=== PATIENT | male | born 1965 ===

== ENCOUNTER 2022-06-22 07:50 | Inpatient (IN) ==
[2022-06-22 09:36] LABS: ABS Basophils 0.1 10^3/ul (0-0.2); ABS Eosinophils 0.1 10^3/ul (0-0.6); ABS Lymphocytes 0.8 10^3/ul (1.0-4.8); ABS Monocytes 1.1 10^3/ul (0-0.8); ABS Neutrophils 4.3 10^3/ul (1.5-7.7); Eosinophil % 1.3 %; Hematocrit 42 % (42-52); Hemoglobin 14.7 g/dL (14.0-18.0); Lymphocyte % 12.4 %; Mean Corpuscular HGB Conc 35 g/dL (31-36); Mean Corpuscular Hemoglobin 31 pg (27-31); Mean Corpuscular Volume 88 fL (80-94); Mean Platelet Volume 7.1 fL (7.4-10.4); Platelet Count 237 10^3/uL (150-450); Red Blood Count 4.81 10^6 /uL (4.18-5.48); Red Cell Distribution Width 14 % (10-15); White Blood Count 6.3 10^3/uL (3.5-10.8)
[2022-06-22 10:04] LABS: Albumin 4.3 g/dL (3.2-5.2); Albumin/Globulin Ratio 1.7 (1-3); Calcium 9.1 mg/dL (8.6-10.3); Globulin 2.6 g/dL (2-4); Magnesium 2.1 mg/dL (1.9-2.7); Potassium 4.2 mmol/L (3.5-5.0); Total Bilirubin 1.1 mg/dL (0.2-1.0); Total Protein 6.9 g/dL (6.4-8.9); eGFR CKD-EPI 104.9 (>60)
[2022-06-22] MEDS: Enoxaparin 40 MG/0.4 ML SYR SUBCUT SCH (12:59)
[2022-06-22] MEDS: Dexamethasone IV 4 MG/ML VIAL 1 ml VIAL IV SLOW PU SCH ×2 (12:59→21:25)
[2022-06-22 13:06] LABS: Urine Appearance Clear; Urine Bilirubin Negative (Negative); Urine Blood Negative (Negative); Urine Color Yellow; Urine Glucose Negative (Negative); Urine Ketones Negative (Negative); Urine Nitrite Negative (Negative); Urine Protein Negative (Negative); Urine Specific Gravity 1.012 (1.002-1.030); Urine Urobilinogen Negative (Negative)
[2022-06-22] MEDS ORDERED: Gadoteridol (CONTRAST) 279.3 MG/ML 10 ML IV ONE (14:13)
[2022-06-22 16:52] LABS: TSH Ultra Thyroid Stim Horm 1.54 mcIU/mL (0.34-5.60)
[2022-06-22] MEDS ORDERED: Cyanocobalamin INJ 1,000 MCG/ML VIAL 1 ML VIAL IM ONE (20:00)
[2022-06-23] MEDS: Dexamethasone IV 4 MG/ML VIAL 1 ml VIAL IV SLOW PU SCH ×2 (09:41→21:24)
[2022-06-23] MEDS: Levetiracetam XR 500 MG TAB.XR PO SCH (09:41)
[2022-06-23] MEDS: Enoxaparin 40 MG/0.4 ML SYR SUBCUT SCH (12:39)
[2022-06-23] MEDS ORDERED: Cyanocobalamin INJ 1,000 MCG/ML VIAL 1 ML VIAL IM ONE (14:20)
[2022-06-24] MEDS: Dexamethasone IV 4 MG/ML VIAL 1 ml VIAL IV SLOW PU SCH ×2 (10:34→20:06)
[2022-06-24] MEDS: Levetiracetam XR 500 MG TAB.XR PO SCH ×2 (13:22→15:44)
[2022-06-24] MEDS ORDERED: Cyanocobalamin INJ 1,000 MCG/ML VIAL 1 ML VIAL IM ONE (14:00)
[2022-06-24] MEDS: Enoxaparin 40 MG/0.4 ML SYR SUBCUT SCH (15:16)
[2022-06-25] MEDS: Dexamethasone IV 4 MG/ML VIAL 1 ml VIAL IV SLOW PU SCH ×2 (08:47→20:40)
[2022-06-25] MEDS: Levetiracetam XR 500 MG TAB.XR PO SCH (09:49)
[2022-06-25] MEDS: Enoxaparin 40 MG/0.4 ML SYR SUBCUT SCH (13:57)
[2022-06-26] MEDS ORDERED: LORazepam 2 mg VIAL 1 ml IV PUSH ONE (04:51)
[2022-06-26] MEDS ORDERED: Lorazepam PYXIS KEY PRN (04:51)
[2022-06-26] MEDS: Dexamethasone IV 4 MG/ML VIAL 1 ml VIAL IV SLOW PU SCH ×2 (09:14→20:59)
[2022-06-26] MEDS: Levetiracetam XR 500 MG TAB.XR PO SCH (09:14)
[2022-06-26] MEDS: Enoxaparin 40 MG/0.4 ML SYR SUBCUT SCH (13:32)
[2022-06-27] MEDS: Levetiracetam XR 500 MG TAB.XR PO SCH (09:03)
[2022-06-27] MEDS: Dexamethasone IV 4 MG/ML VIAL 1 ml VIAL IV SLOW PU SCH ×2 (09:04→22:02)
[2022-06-27] MEDS: Enoxaparin 40 MG/0.4 ML SYR SUBCUT SCH (13:47)
[2022-06-28] MEDS: Dexamethasone IV 4 MG/ML VIAL 1 ml VIAL IV SLOW PU SCH ×2 (10:20→20:18)
[2022-06-28] MEDS: Levetiracetam XR 500 MG TAB.XR PO SCH (10:21)
[2022-06-28] MEDS: Enoxaparin 40 MG/0.4 ML SYR SUBCUT SCH (14:23)
[2022-06-29] MEDS: Dexamethasone IV 4 MG/ML VIAL 1 ml VIAL IV SLOW PU SCH ×2 (08:26→20:22)
[2022-06-29] MEDS: Levetiracetam XR 500 MG TAB.XR PO SCH (08:26)
[2022-06-29] MEDS: Enoxaparin 40 MG/0.4 ML SYR SUBCUT SCH (13:51)
[2022-06-29] MEDS ORDERED: Cyanocobalamin INJ 1,000 MCG/ML VIAL 1 ML VIAL IM ONE (13:54)
[2022-06-30] MEDS: Dexamethasone IV 4 MG/ML VIAL 1 ml VIAL IV SLOW PU SCH (09:35)
[2022-06-30] MEDS: Levetiracetam XR 500 MG TAB.XR PO SCH (09:35)
[2022-06-30] MEDS: Enoxaparin 40 MG/0.4 ML SYR SUBCUT SCH (13:49)
[2022-07-01] MEDS: Levetiracetam XR 500 MG TAB.XR PO SCH (09:45)
[2022-07-01] MEDS: Enoxaparin 40 MG/0.4 ML SYR SUBCUT SCH (13:18)
[2022-07-02] MEDS: Levetiracetam XR 500 MG TAB.XR PO SCH (09:38)
[2022-07-02] MEDS ORDERED: Cyanocobalamin INJ 1,000 MCG/ML VIAL 1 ML VIAL IM ONE (11:00)
[2022-07-02] MEDS: Enoxaparin 40 MG/0.4 ML SYR SUBCUT SCH (12:25)
[2022-07-03] MEDS: Levetiracetam XR 500 MG TAB.XR PO SCH (09:24)
[2022-07-03] MEDS: Enoxaparin 40 MG/0.4 ML SYR SUBCUT SCH (12:38)
[2022-07-03 15:02] LABS: Rapid COVID-19 Molecular Undetected (Undetected)
[2022-07-04] MEDS ORDERED: Polyethylene Glycol 3350 17 GM PACKET PO PRN (00:34)
[2022-07-04] MEDS ORDERED: Magnesium Hydroxide LIQ 30 ML UDC PO PRN (00:34)
[2022-07-04] MEDS ORDERED: Senna TAB 8.6 mg TAB PO PRN (00:34)
[2022-07-04 06:04] LABS: ABS Lymphocytes 0.9 10^3/ul (1.0-4.8); ABS Monocytes 0.9 10^3/ul (0-0.8); Hematocrit 43 % (42-52); Hemoglobin 14.6 g/dL (14.0-18.0); Lymphocyte % 5.1 %; Mean Corpuscular HGB Conc 34 g/dL (31-36); Mean Corpuscular Hemoglobin 30 pg (27-31); Mean Corpuscular Volume 88 fL (80-94); Mean Platelet Volume 7.5 fL (7.4-10.4); Platelet Count 260 10^3/uL (150-450); Red Blood Count 4.86 10^6 /uL (4.18-5.48); Red Cell Distribution Width 14 % (10-15); White Blood Count 17.8 10^3/uL (3.5-10.8)
[2022-07-04 06:28] LABS: Calcium 8.5 mg/dL (8.6-10.3); Potassium 4.8 mmol/L (3.5-5.0); eGFR CKD-EPI 110.3 (>60)
[2022-07-04] MEDS: Levetiracetam XR 500 MG TAB.XR PO SCH (10:48)
[2022-07-04] MEDS: Enoxaparin 40 MG/0.4 ML SYR SUBCUT SCH (14:31)
[2022-07-05 05:56] LABS: ABS Lymphocytes 0.7 10^3/ul (1.0-4.8); ABS Monocytes 0.8 10^3/ul (0-0.8); ABS Neutrophils 14.5 10^3/ul (1.5-7.7); Hematocrit 43 % (42-52); Hemoglobin 14.5 g/dL (14.0-18.0); Lymphocyte % 4.4 %; Mean Corpuscular HGB Conc 34 g/dL (31-36); Mean Corpuscular Hemoglobin 30 pg (27-31); Mean Corpuscular Volume 88 fL (80-94); Mean Platelet Volume 7.5 fL (7.4-10.4); Platelet Count 236 10^3/uL (150-450); Red Blood Count 4.88 10^6 /uL (4.18-5.48); Red Cell Distribution Width 13 % (10-15)
[2022-07-05 06:26] LABS: Calcium 8.2 mg/dL (8.6-10.3); Potassium 4.7 mmol/L (3.5-5.0); eGFR CKD-EPI 110.3 (>60)
[2022-07-05] MEDS: Levetiracetam XR 500 MG TAB.XR PO SCH (11:02)
[2022-07-05] MEDS: Enoxaparin 40 MG/0.4 ML SYR SUBCUT SCH (13:19)
[2022-07-06] MEDS: Levetiracetam XR 500 MG TAB.XR PO SCH (10:23)
[2022-07-06] MEDS: Enoxaparin 40 MG/0.4 ML SYR SUBCUT SCH (12:54)
[2022-07-07] MEDS: Levetiracetam XR 500 MG TAB.XR PO SCH (10:36)
[2022-07-07] MEDS: Enoxaparin 40 MG/0.4 ML SYR SUBCUT SCH (12:24)
[2022-07-08] MEDS: Levetiracetam XR 500 MG TAB.XR PO SCH (10:27)
[2022-07-08 11:23] LABS: Rapid COVID-19 Molecular Undetected (Undetected)
[2022-07-08 11:52] VITALS: BP 138/98
== END 2022-07-08 12:35 | DRG 41 ==
LOC: ED 07:50 → EDHOLD 07:50 → OBSVTOIN 12:20 → SUATTDRO 12:20 → EDHOLD 16:13 → MED 16:30
PROVIDERS: ADMIT Internal Medicine; ATTEND Internal Medicine